=== PATIENT | male | born 1995 | race Caucasian/White ===

== ENCOUNTER 2017-10-09 21:01 | Emergency (ER) | payer MEDICAID ==
[2017-10-09 21:20] VITALS: BP 137/70
--- NOTE | 2017-10-09 21:33 | EDM.PDOC ---
ED HPI GENERAL MEDICAL PROBLEM - General Chief Complaint: General Stated Complaint: PAIN DUE TO CONSTIPATION Time Seen by Provider: 10/09/17 21:05 Source of Information: Reports: Patient History Limitations: Reports: No Limitations - History of Present Illness INITIAL COMMENTS - FREE TEXT/NARRATIVE: According to patient he claims that he has not had a bowel movement in the past 2 days now. He has been having dull achy pain in the lower abdomen. No abdominal bloating. No nausea or vomiting. No fever or chills. Pt claims he has taken 2 tablets of dulcolax and still has not had BM. Onset Date: 10/07/17 Duration: Intermittent Location: Reports: Abdomen Quality: Reports: Ache Severity: Mild Improves with: Reports: None Worsens with: Reports: None Associated Symptoms: Denies: Confusion, Cough, Diaphoresis, Fever/Chills, Headaches, Loss of Appetite, Nausea/Vomiting, Rash, Seizure, Shortness of Breath , Weakness Bilateral Lower Abdomen Pain Score (Numeric/FACES): 5 - Related Data Allergies Allergy/AdvReac Type Severity Reaction Status Date / Time No Known Allergies Allergy Verified 08/07/14 21:06 Home Meds: Home Meds Losartan Potassium [Losartan Potassium] 25 mg PO DAILY 08/07/14 [History] Metoprolol Tartrate [Lopressor] 50 mg PO BID 02/05/16 [History] Past Medical History HEENT History: Reports: Impaired Vision Cardiovascular History: Reports: Hypertension, Other (See Below) Other Cardiovascular History: aortic valve anomaly Gastrointestinal History: Reports: Chronic Constipation, Irritable Bowel Syndrome Other Gastrointestinal History: Hemangioma on Liver Genitourinary History: Reports: Other (See Below) Other Genitourinary History: Occasional dysuria Psychiatric History: Reports: Anxiety - Past Surgical History HEENT Surgical History: Reports: None GI Surgical History: Reports: None Social & Family History - Family History Family Medical History: Noncontributory - Tobacco Use Smoking Status *Q: Never Smoker Second Hand Smoke Exposure: No - Alcohol Use Days Per Week of Alcohol Use: 0 - Recreational Drug Use Recreational Drug Use: No ED ROS GENERAL - Review of Systems Review Of Systems: See Below Constitutional: Denies: Fever, Chills HEENT: Denies: Rhinitis, Sinus Problem, Throat Pain, Throat Swelling Respiratory: Denies: Shortness of Breath, Wheezing, Cough, Sputum Cardiovascular: Denies: Chest Pain, Lightheadedness GI/Abdominal: Reports: Abdominal Pain, Constipation. Denies: Diarrhea, Decreased Appetite, Hematemesis, Hematochezia, Nausea, Vomiting : Denies: Dysuria, Flank Pain, Frequency Musculoskeletal: Denies: Joint Pain, Joint Swelling Skin: Denies: Bruising, Pruritis, Rash Neurological: Denies: Confusion, Dizziness ED EXAM, GENERAL - Physical Exam Exam: See Below Exam Limited By: No Limitations General Appearance: Alert, WD/WN, No Apparent Distress Eye Exam: Bilateral Eye: EOMI, PERRL Ears: Normal External Exam, Normal Canal, Hearing Grossly Normal, Normal TMs Ear Exam: Bilateral Ear: Auricle Normal, Canal Normal, TM normal Nose: Normal Inspection, Normal Mucosa, No Blood Throat/Mouth: Normal Inspection, Normal Lips, Normal Teeth, Normal Gums, Normal Oropharynx, Normal Voice, No Airway Compromise Head: Atraumatic, Normocephalic Neck: Normal Inspection, Supple, Non-Tender, Full Range of Motion Respiratory/Chest: No Respiratory Distress, Lungs Clear, Normal Breath Sounds, No Accessory Muscle Use, Chest Non-Tender Cardiovascular: Normal Peripheral Pulses, Regular Rate, Rhythm, No Edema, No Gallop, No JVD, No Murmur, No Rub GI/Abdominal: Normal Bowel Sounds, Soft, No Organomegaly, No Distention, No Abnormal Bruit, No Mass, Tender (in the lower quadrant to palpation) Extremities: Normal Inspection, Normal Range of Motion, Non-Tender, Normal Capillary Refill, No Pedal Edema Skin Exam: Warm, Intact Course - Vital Signs Text/Narrative:: On questioning patient on his diet, he is basically meat eater. He does not consume any form of dietary fibres in the form of vegetable. His clinical exam is normal other than mild tenderness is the lower quadrant consistent with colonic spasm.He has good bowel sounds. Will get abdomen 1 view to really see, how much stool is really there. Pt reassured, that his abdominal xray does not show a lot of stool in the colon. The probably cause of the discomfort is the small bulk of stool not propulsive through the colon. I have advised patient to drink miralax 1 tablespoon with 12 oz of water to night.If not successful, advsied to try fleets enema in the morning. Advised to add natural fibres into diet . Followup in clinic if not better. Last Recorded V/S: Last Vital Signs Temp 98.8 F 10/09/17 21:02 Pulse 76 10/09/17 21:02 Resp 18 10/09/17 21:02 BP 137/70 10/09/17 21:02 Pulse Ox 99 10/09/17 21:02 - Orders/Labs/Meds Orders: Active Orders 24 hr Category Date Time Status Abdomen 2V AP Flat Upright [CR] Stat Exams 10/09/17 21:17 Ordered Departure - Departure Time of Disposition: 21:55 Disposition: Home, Self-Care 01 Condition: Good Clinical Impression: Constipation by delayed colonic transit - Discharge Information Referrals: PCP,None [Primary Care Provider] - Additional Instructions: Pt reassured, that his abdominal xray does not show a lot of stool in the colon. The probably cause of the discomfort is the small bulk of stool not propulsive through the colon. I have advised patient to drink miralax 1 tablespoon with 12 oz of water to night.If not successful, advsied to try fleets enema in the morning. Advised to add natural fibres into diet . Followup in clinic if not better. - Problem List & Annotations (1) Constipation by delayed colonic transit SNOMED Code(s): 60066804 Code(s): K59.01 - SLOW TRANSIT CONSTIPATION Status: Acute Current Visit: Yes - Problem List Review Problem List Initiated/Reviewed/Updated: Yes - My Orders Last 24 Hours: My Active Orders 10/09/17 21:17 Abdomen 2V AP Flat Upright [CR] Stat - Assessment/Plan Last 24 Hours: My Active Orders 10/09/17 21:17 Abdomen 2V AP Flat Upright [CR] Stat Assessment:: Constipation Plan: Pt reassured, that his abdominal xray does not show a lot of stool in the colon. The probably cause of the discomfort is the small bulk of stool not propulsive through the colon. I have advised patient to drink miralax 1 tablespoon with 12 oz of water to night.If not successful, advsied to try fleets enema in the morning. Advised to add natural fibres into diet . Followup in clinic if not better.
--- NOTE | 2017-10-10 09:11 | CR ---
SUPINE AND UPRIGHT ABDOMEN No evidence of obstruction or ileus. No free air. [id number] MTDD
== END 2017-10-09 21:57 | disposition home or self-care (01) ==
LOC: LB.ED 21:01
DX: K59.01 Slow transit constipation (principal); I10 Essential (primary) hypertension
CPT/HCPCS: 74019; 99283

== ENCOUNTER 2018-09-09 17:24 | Emergency (ER) | payer MEDICAID ==
[2018-09-09 17:40] VITALS: BP 124/79
== END 2018-09-09 17:34 | disposition home or self-care (01) ==
LOC: LB.ED 17:24
DX: Z01.30 Encounter for examination of blood pressure without abnormal findings (principal)
CPT/HCPCS: 99283

== ENCOUNTER 2021-09-15 18:09 | Emergency (ER) | payer MEDICAID ==
[2021-09-15 19:00] VITALS: BP 125/83; PULSE 68
== END 2021-09-15 20:16 | disposition home or self-care (01) ==
LOC: LB.ED 18:09
DX: J06.9 Acute upper respiratory infection, unspecified (principal); I10 Essential (primary) hypertension; Z79.899 Other long term (current) drug therapy; Z20.822 Contact with and (suspected) exposure to COVID-19
CPT/HCPCS: 36415; 71045; 80048; 80307; 84484; 85025; 93005; 99285-25; U0002

== ENCOUNTER 2023-04-07 19:28 | Emergency (ER) | payer MEDICAID ==
[2023-04-07] MEDS ORDERED: Sodium Chloride 0.9% 10 ML Syringe FLUSH PRN (20:23)
[2023-04-07 20:30] LABS: BASOPHILS ABSOLUTE AUTO 0.01 K/uL (0.02-0.10); BASOPHILS PERCENT AUTO 0.1 % (0.0-0.5); EOSINOPHILS ABSOLUTE AUTO 0.07 K/uL (0.04-0.40); EOSINOPHILS PERCENT AUTO 0.9 % (1.0-5.0); HEMATOCRIT 42.8 % (40.0-54.0); HEMOGLOBIN 14.5 g/dL (13.0-18.0); LYMPHOCYTES ABSOLUTE AUTO 2.02 K/uL (1.50-4.00); MEAN CORPUSCULAR HEMOGLOBIN 31.4 pg (27.0-32.0); MEAN CORPUSCULAR HGB CONC 33.9 g/dL (31.0-35.0); MEAN CORPUSCULAR VOLUME 93 fL (76-96); MEAN PLATELET VOLUME 9.7 fL (6.0-10.0); MONOCYTES ABSOLUTE AUTO 0.83 K/uL (0.20-0.80); MONOCYTES PERCENT AUTO 10.7 % (3.0-10.0); NEUTROPHILS ABSOLUTE AUTO 4.85 K/uL (2.00-7.50); NEUTROPHILS PERCENT AUTO 62.3 % (45.0-70.0); PLATELET COUNT,PLT 226 K/uL (150-400); RED BLOOD CELL COUNT 4.62 M/uL (4.50-6.50); WHITE BLOOD CELL COUNT,WBC 7.8 K/uL (4.0-11.0)
[2023-04-07 20:31] LABS: APPEARANCE,URINE CLEAR (CLEAR); BILIRUBIN,URINE NEGATIVE (NEGATIVE); COLOR,URINE YELLOW; GLUCOSE,URINE NEGATIVE (NEGATIVE); KETONES,URINE NEGATIVE (NEGATIVE); LEUKOCYTE ESTERASE,URINE NEGATIVE (NEGATIVE); NITRITE,URINE NEGATIVE (NEGATIVE); OCCULT BLOOD,URINE NEGATIVE (NEGATIVE); PROTEIN,URINE NEGATIVE (NEGATIVE); UROBILINOGEN,URINE 0.2 E.U./dL (0.2-1.0)
[2023-04-07 20:45] LABS: A/G RATIO 1.4 (0.8-2.0); ALBUMIN 4.3 g/dL (3.4-5.0); BILIRUBIN TOTAL 0.5 mg/dL (0.0-1.0); CALCIUM 9.2 mg/dL (8.5-10.1); CARBON DIOXIDE,CO2 26.6 mmol/L (21.0-32.0); CREATININE 0.93 mg/dL (0.70-1.30); EST CRCL DRUG DOSING (CG) 128.2 mL/min; POTASSIUM,K 3.6 mmol/L (3.5-5.1); PROTEIN TOTAL,TP 7.3 g/dL (6.4-8.2)
[2023-04-07 21:23] VITALS: BP 117/69; PULSE 74
== END 2023-04-07 21:10 | disposition home or self-care (01) ==
LOC: LB.ED 19:28
DX: R10.12 Left upper quadrant pain (principal)
CPT/HCPCS: 36415; 80053; 81003; 83690; 85025; 99284; J3490

== ENCOUNTER 2023-04-15 16:37 | Emergency (ER) | payer MEDICAID ==
[2023-04-15 17:36] LABS: APPEARANCE,URINE CLEAR (CLEAR); BILIRUBIN,URINE NEGATIVE (NEGATIVE); COLOR,URINE YELLOW; GLUCOSE,URINE NEGATIVE (NEGATIVE); KETONES,URINE NEGATIVE (NEGATIVE); LEUKOCYTE ESTERASE,URINE NEGATIVE (NEGATIVE); NITRITE,URINE NEGATIVE (NEGATIVE); OCCULT BLOOD,URINE NEGATIVE (NEGATIVE); PH,URINE 7.5 (5.0-8.0); PROTEIN,URINE NEGATIVE (NEGATIVE); UROBILINOGEN,URINE 0.2 E.U./dL (0.2-1.0)
[2023-04-15 17:39] LABS: BASOPHILS ABSOLUTE AUTO 0.03 K/uL (0.02-0.10); BASOPHILS PERCENT AUTO 0.5 % (0.0-0.5); EOSINOPHILS ABSOLUTE AUTO 0.08 K/uL (0.04-0.40); EOSINOPHILS PERCENT AUTO 1.4 % (1.0-5.0); HEMATOCRIT 41.9 % (40.0-54.0); HEMOGLOBIN 14.2 g/dL (13.0-18.0); LYMPHOCYTES ABSOLUTE AUTO 1.89 K/uL (1.50-4.00); LYMPHOCYTES PERCENT AUTO 32.6 % (20.0-40.0); MEAN CORPUSCULAR HEMOGLOBIN 31.3 pg (27.0-32.0); MEAN CORPUSCULAR HGB CONC 33.9 g/dL (31.0-35.0); MEAN CORPUSCULAR VOLUME 93 fL (76-96); MEAN PLATELET VOLUME 9.4 fL (6.0-10.0); MONOCYTES PERCENT AUTO 12.1 % (3.0-10.0); NEUTROPHILS PERCENT AUTO 53.4 % (45.0-70.0); PLATELET COUNT,PLT 226 K/uL (150-400); RED BLOOD CELL COUNT 4.53 M/uL (4.50-6.50); RED CELL DISTRIBUTION WIDTH 13.1 % (11.0-16.0); WHITE BLOOD CELL COUNT,WBC 5.8 K/uL (4.0-11.0)
[2023-04-15 17:40] LABS: RBC,URINE NOT SEEN /HPF; WBC,URINE NOT SEEN /HPF
[2023-04-15 17:48] LABS: A/G RATIO 1.5 (0.8-2.0); ALBUMIN 4.1 g/dL (3.4-5.0); ANION GAP 13.1 mmol/L (5.0-15.0); BILIRUBIN TOTAL 0.4 mg/dL (0.0-1.0); BUN/CREATININE RATIO 19.5 (6-25); CALCIUM 9.1 mg/dL (8.5-10.1); CARBON DIOXIDE,CO2 26.7 mmol/L (21.0-32.0); CREATININE 0.87 mg/dL (0.70-1.30); EST CRCL DRUG DOSING (CG) 132.85 mL/min; POTASSIUM,K 3.8 mmol/L (3.5-5.1); PROTEIN TOTAL,TP 6.9 g/dL (6.4-8.2)
[2023-04-15] MEDS ORDERED: Magnesium Citrate Solution 296 ML Bottle ONE (18:30)
[2023-04-15 18:43] VITALS: BP 130/79; PULSE 74
== END 2023-04-15 18:38 | disposition home or self-care (01) ==
LOC: LB.ED 16:37
DX: K59.00 Constipation, unspecified (principal); I10 Essential (primary) hypertension; Z86.16 Personal history of COVID-19; Z79.899 Other long term (current) drug therapy
CPT/HCPCS: 36415; 74176; 80053; 81001; 83690; 85025; 99284; A9270